=== PATIENT | female | born 1980 | race Caucasian/White ===

== ENCOUNTER 2021-06-06 18:06 | Emergency (ER) | payer OTHER, MEDICAID, SELFPAY ==
[2021-06-06 18:10] VITALS: BP 118/75; PULSE 80; RESP 14; TEMP 36.8; O2SAT 99; BMI 19.8
[2021-06-06 18:12] VITALS: PULSE 86; O2SAT 98
[2021-06-06 18:13] VITALS: BP 118/75; PULSE 84
--- NOTE | 2021-06-06 18:30 | ED_ITS ---
HPI - Head Injury General Chief complaint: Head Injury Stated complaint: Fall, Hit Head, Laceration to Back of Head Time Seen by Provider: 06/06/21 18:15 Source: patient Mode of arrival: Ambulatory History of Present Illness HPI Narrative: 41F nonsmoker with noncontributory medical history presents for evaluation of a ground level fall with a head injury. She was out hiking and stepped on some unsteady ground they gave way underneath her causing her to fall backwards and strike her head. She denies any loss of consciousness, nausea or vomiting. She does not take blood thinners and denies the use of alcohol or street drugs. She has no other injuries. She denies any neurologic symptoms such as blurred vision, trouble speech or extremity weakness. She suffered a laceration on her scalp, tetanus was updated about 1 year ago. Related Data Allergies Allergy/AdvReac Type Severity Reaction Status Date / Time No Known Drug Allergies Allergy Verified 06/06/21 18:14 Review of Systems Review of Systems Narrative: GENERAL: Denies chills, fatigue, malaise, fever, sweats. HEENT: Denies sinus pain, ear pain, sore throat, difficulty swallowing, dizziness. RESPIRATORY: Denies dyspnea, cough, wheezing, hemoptysis, sputum. CARDIOVASCULAR: Denies chest pain, palpitations, orthopnea, edema, GASTROINTESTINAL: Denies nausea, vomiting, abdominal pain, diarrhea, constipation, melena. : Denies dysuria, frequency, incontinence, hematuria, urinary retention. MUSCULOSKELETAL: denies weakness, joint pain, or bony pain SKIN: See HPI NEUROLOGIC: Denies weakness, headache, numbness, change in speech, confusion, seizures, incoordination. PSYCHIATRIC: No concerning psychosocial issues. 12 point review of systems is negative except for those stated above Patient History Social History Smoking Status: Unknown if ever smoked Smoking Status: Unknown if ever smoked alcohol intake frequency: holidays/special occasions only Substance Use Type: does not use Exam Narrative Exam Narrative: GEN: AOx3 and in mild distress, GCS 15 HEAD: 2 cm posterior scalp laceration without evidence of foreign body, minimal bleeding, no evidence of depressed skull fracture EYES: Pupils are equal, round, and reactive to light and accommodation. Extraoccular muscles are intact bilaterally. There is no subconjunctival hemorrhage or exudate. CHEST: Lungs are clear to auscultation bilaterally and free of wheezes, rales, or rhonchi. Heart rate is regular rhythm, there are no murmurs, clicks, rubs, or gallops. There is no chest wall tenderness. ABD: Abdomen is soft and nontender. There is no guarding or rebound. Bowel sounds are normal in all 4 quadrants. There is no mass or organomegaly. EXT: Full painless ROM of all extremities with no loss of sensation or strength. SKIN: Warm, pink, and dry. No erythema or rash Initial Vital Signs Initial Vital Signs: Vital Signs Temperature 98.2 F 06/06/21 18:10 Pulse Rate 80 06/06/21 18:10 Respiratory Rate 14 06/06/21 18:10 Blood Pressure 118/75 06/06/21 18:10 Pulse Oximetry 99 06/06/21 18:10 Procedures Laceration Repair Laceration 1: Site: scalp Size (cm): 2 Description: linear Depth: simple, single layer Local Anesthetic: lidocaine 1% and with bicarb Amount of anesthesia used (mL): 4 Pre-repair: wound explored and irrigated extensively Skin layer closed with: armando Scores [place] CT Head Rule Age <16 years old: No Patient on blood thinners: No Seizure after injury: No Exclusion: Patient NOT Excluded, Proceed to next steps GCS < 15 at 2 hr post trauma: No Suspected open or depressed skull fracture: No Any sign of basilar skull fracture (hemotympanum, raccoon eyes, Crews's sign, CSF maia-/rhinorrhea): No Two or more episodes of vomiting: No Age greater or equal to 65 years: No Retrograde amnesia to the event greater or equal to 30 min: No Dangerous Mechanism (pedestrian vs. mv, occupant ejected from mv, fall from >3 ft or > 5 stairs): No Recommendation: CT unnecessary Course Vital Signs Vital signs: Vital Signs - 8 hr 06/06/21 18:10 06/06/21 18:12 06/06/21 18:13 Temperature 98.2 F Pulse Rate 80 86 84 Respiratory Rate 14 Blood Pressure 118/75 118/75 Pulse Oximetry 99 98 06/06/21 18:33 Temperature Pulse Rate 75 Respiratory Rate Blood Pressure 112/65 Pulse Oximetry 98 MDM - Head Injury MDM Narrative Medical decision making narrative: Patient with low risk injury, [place] head CT rules employed and there is no indication for imaging. She does not have any signs or symptoms consistent with concussion. Return precautions given and questions answered to her apparent satisfaction Discharge Plan Departure Patient Disposition: Home Clinical Impression: Laceration of scalp Instructions: DI for Laceration Repair of the Scalp Activity Restrictions/Additional Instructions: *You have been diagnosed with [minor head injury with scalp laceration, repaired by armando. As we discussed her history and physical exam are very reassuring and there is no indication for advanced imaging of your head *What to do: *Please continue to take your regular medications as directed. [ ] New medication prescriptions sent to your pharmacy: [ ] [ ] New medication written as a paper prescription [x ] No new medications given * Please keep the wound clean and dry to the best of your ability. Please monitor for signs of infection such as redness to the skin or increasing pain. Have the sutures/armando removed by your doctor in about 7 days. If you are unable to get into your doctor, we would be happy to remove the sutures/armando in that same timeframe. *If you do not have a primary care provider please contact the [facility] Resource line at [phone]. They will ask some questions about your medical history and help get you set up with a doctor in the community. *Return to Emergency Department if you should have any new, worsening or concerning symptoms, such as [fever greater than 101 F, shaking chills, worsening pain, persistent vomiting or other bothersome symptoms] Referrals: Miscellaneous,Doctor, [Primary Care Provider] -
[2021-06-06 18:33] VITALS: BP 112/65; PULSE 75; O2SAT 98
[2021-06-06] MEDS: LIDO 1%/SOD BICARB 8.4% (10ML) 10 ML SYRINGE INJ (18:47)
--- NOTE | 2021-06-06 18:56 | PC.NURSE ---
Pt received 4 armando to lac @ back of head. Tolerated procedure well. @ bedside.
== END 2021-06-06 18:59 | disposition home or self-care (01) ==
PROVIDERS: Emergency Provider Emergency Medicine
DX: S01.01XA Laceration without foreign body of scalp, initial encounter (principal); W01.10XA Fall on same level from slipping, tripping and stumbling with subsequent striking against unspecified object, initial encounter; Y93.01 Activity, walking, marching and hiking
CPT/HCPCS: 12001; 99283; 99284

== ENCOUNTER 2021-06-12 20:11 | Emergency (ER) | payer OTHER, MEDICAID, SELFPAY ==
[2021-06-12 20:25] VITALS: BP 113/67; PULSE 66; RESP 16; TEMP 36.6; O2SAT 98
--- NOTE | 2021-06-12 20:57 | PC.NURSE ---
Adger in place to scalp, wound is closed and appears healed. 4 staple removed per request. Pt tolerated it well.
--- NOTE | 2021-06-12 21:28 | ED.WOUNDLAC ---
HPI - Wound/Laceration General Chief Complaint: Wound/Laceration Stated Complaint: NEEDS ARMANDO REMOVED FROM THE BACK OF HER HEAD Time Seen by Provider: 06/12/21 21:26 Source: patient Mode of arrival: Ambulatory History of Present Illness HPI narrative: Patient is a 41-year-old female presents for staple removal. She fell and hit her head on a rock 6 days ago. She has had very mild headaches is no focal deficits no nausea or vomiting. Overall feeling good. Armando have been removed by nursing staff. Related Data Allergies Allergy/AdvReac Type Severity Reaction Status Date / Time No Known Drug Allergies Allergy Verified 06/06/21 18:14 Review of Systems Review of Systems Narrative: GENERAL: Denies chills,fever HEENT: Denies throat pain RESPIRATORY: Denies dyspnea, cough, wheezing CARDIOVASCULAR: Denies chest pain, palpitations GASTROINTESTINAL: Denies nausea, vomiting MUSCULOSKELETAL: Denies extremity pain, injury SKIN: See HPI NEUROLOGIC: Denies weakness, dizziness, headache, numbness 8 point review of systems is negative except for those stated above and HPI Patient History Social History Smoking Status: Unknown if ever smoked Smoking Status: Unknown if ever smoked alcohol intake frequency: holidays/special occasions only Substance Use Type: does not use Exam Initial Vital Signs Initial Vital Signs: Vital Signs Temperature 98 F 06/12/21 20:25 Pulse Rate 66 06/12/21 20:25 Respiratory Rate 16 06/12/21 20:25 Blood Pressure 113/67 06/12/21 20:25 Pulse Oximetry 98 06/12/21 20:25 GENERAL: Well-appearing, well-nourished and in no acute distress. CARDIOVASCULAR: peripheral pulses in tact, cap refill <2 sec RESPIRATORY: No respiratory distress, speaks in full sentences without difficulty EXTREMITIES: Normal range of motion, no clubbing or edema. Neurovascularly intact NEUROLOGICAL: Cranial nerves II through XII grossly intact. Normal gait and speech. SKIN: Scalp wound healing and scabbed over Course Vital Signs Vital signs: Vital Signs - 8 hr 06/12/21 20:25 Temperature 98 F Pulse Rate 66 Respiratory Rate 16 Blood Pressure 113/67 Pulse Oximetry 98 Discharge Plan Departure Patient Disposition: Home Clinical Impression: Removal of armando Instructions: DI for Laceration Repair -- [place] Activity Restrictions/Additional Instructions: *You have been diagnosed with staple removal *What to do: Continue supportive care. Scab will fall off on its own *Continue to take medications as directed Tylenol 6 50 mg if needed for headache *Follow up with your primary care provider in 2-3 days or call [phone] *Return to ER if you should have any new, worsening or concerning symptoms
== END 2021-06-12 21:37 | disposition home or self-care (01) ==
PROVIDERS: Emergency Provider Emergency Medicine
DX: Z48.02 Encounter for removal of sutures (principal)
CPT/HCPCS: 99281